=== PATIENT | male | born 1990 | race Caucasian/White ===

== ENCOUNTER 2020-05-06 13:10 | Emergency (ER) | payer OTHER ==
[~2020-05-06] VITALS: Ht 185.4 cm; Wt 72.6 kg
[~2020-05-06 13:10] MED LIST: ACETAMINOPHEN-1 EAC1 PO; BACTRIM DS TAB1 EACH PO
[2020-05-06] MEDS ORDERED: ALLEGRA-D 12 H1 EAC1 PO (13:27)
[2020-05-06] MEDS ORDERED: IBUPROFEN 800800 M1 PO (14:19)
[2020-05-06] MEDS ORDERED: ZANAFLEX4 MG PO (14:19)
[2020-05-06 15:00] VITALS: BP 129/63
== END 2020-05-06 15:00 | disposition home or self-care (01) ==
LOC: M.ERS 13:10
DX: S39.82XA Other specified injuries of lower back, initial encounter (principal); M79.652 Pain in left thigh; V43.62XA Car passenger injured in collision with other type car in traffic accident, initial encounter; Y93.89 Activity, other specified; Y92.488 Other paved roadways as the place of occurrence of the external cause; Y99.8 Other external cause status